=== PATIENT | male | born 1990 | race Two or more races ===

== ENCOUNTER 2022-07-14 16:11 | Emergency (ER) | payer MEDICAID, OTHER ==
[~2022-07-14] VITALS: Ht 175.3 cm; Wt 95.0 kg
[2022-07-14 16:20] VITALS: BP 119/64
[2022-07-14] MEDS ORDERED: IBUPROFEN 600MG TABLET PO STA (17:04)
[2022-07-14] MEDS ORDERED: IBUP-2029 PO (17:51)
== END 2022-07-14 18:09 | disposition home or self-care (01) ==
LOC: ER 16:11
DX: S60.221A Contusion of right hand, initial encounter (principal); M25.562 Pain in left knee; W18.30XA Fall on same level, unspecified, initial encounter; Y93.89 Activity, other specified; Y92.89 Other specified places as the place of occurrence of the external cause; Y99.8 Other external cause status
CPT/HCPCS: 73130; 73562; 99284